=== PATIENT | female | born 1980 | race Caucasian/White ===

== ENCOUNTER 2020-08-19 18:43 | Observation (INO) | payer MEDICAID, OTHER ==
[~2020-08-19 18:43] MED LIST: Iopamidol-370 76% 500 ML 1 ML ONE
[2020-08-19 19:20] LABS: #Eosinphils 0.1 thou/uL (0.0-0.7); #Lymphocytes 2.4 thou/uL (1.20-3.40); #Monocytes 0.6 thou/uL (0.11-0.59); #Neutrophils 5.6 thou/uL (1.40-6.50); %Basophils 0.2 % (0.0-1.0); %Eosinophils 1.5 % (0.0-10.0); %Lymphocytes 27.2 % (21.0-51.0); %Monocytes 6.5 % (0.0-10.0); %Neutrophils 64.6 % (42.0-75.0); Mean Corpuscular HGB CONC 32.8 g/dL (32.0-36.0); Mean Corpuscular Hemoglobin 32.5 pg (27.0-31.0); Mean Corpuscular Volume 98.8 fL (78.0-98.0); Mean Platelet Volume 7.7 fL (7.4-10.4); Platelet Count 227 thou/uL (130-400); RBC Distribution Width 13.2 % (11.5-14.5); White Blood Cell (WBC) Count 8.6 thou/uL (4.8-10.8)
[2020-08-19 19:48] LABS: ALT (SGPT) 14 U/L (8-55); AST (SGOT) 29 U/L (5-34); Albumin 4.1 g/dL (3.5-5.0); Alkaline Phosphatase 65 U/L (40-110); Anion Gap 15 mmol/L (10-20); BUN (Urea Nitrogen) 8 mg/dL (7.0-18.7); Bilirubin, Total 0.7 mg/dL (0.2-1.2); Calc. Creatinine Clearance 0 mL/min (70-130); Calcium 9.4 mg/dL (7.8-10.44); Carbon Dioxide 25 mmol/L (22-29); Chloride 105 mmol/L (98-107); Globulin 3.3 g/dL (2.4-3.5); Glucose 104 mg/dL (70-105); Lipase 21 U/L (8-78); Potassium 4.8 mmol/L (3.5-5.1); Protein, Total 7.4 g/dL (6.0-8.3); Sodium 140 mmol/L (136-145)
[2020-08-19 22:57] LABS: Troponin I Less than 0.010 ng/mL (< 0.028)
[2020-08-20] MEDS ORDERED: Furosemide 20 MG/2 ML VIAL ONE (00:34)
[2020-08-20 02:11] LABS: SARS-CoV-2 NAA Rapid Test Not Detected (NotDetected)
[2020-08-20 02:51] LABS: Troponin I Less than 0.010 ng/mL (< 0.028)
[2020-08-20 07:36] LABS: Troponin I Less than 0.010 ng/mL (< 0.028)
[2020-08-20 10:40] LABS: Troponin I Less than 0.010 ng/mL (< 0.028)
[2020-08-20] MEDS ORDERED: HYDROcodone/Acetaminophen 5/325 mg Tablet PO PRN (12:46)
[2020-08-20 13:07] VITALS: BMI 29.5
[2020-08-20 14:04] LABS: Troponin I Less than 0.010 ng/mL (< 0.028)
[2020-08-20] MEDS ORDERED: HYDROcodone/Acetaminophen 10/325 mg Tablet PO PRN (17:04)
[2020-08-20] MEDS ORDERED: Metoprolol Tartrate 25 MG TAB PO SCH (21:00)
[2020-08-20] MEDS ORDERED: Diazepam 5 MG TAB PO SCH ×2 (21:00)
[2020-08-20 21:03] VITALS: BP 115/60; TEMP 98.7
[2020-08-21] MEDS ORDERED: Enoxaparin Sodium 40 MG/0.4 ML SYRINGE SC SCH (09:00)
[2020-08-21] MEDS ORDERED: Aspirin Chewable 81 MG TAB PO SCH (09:00)
== END 2020-08-20 21:13 | disposition left against medical advice (07) ==
LOC: ERS 18:43 → ERHOLD 08-20 02:12 → 2SW 08-20 02:24
PROVIDERS: ADMIT Student in an Organized Health Care Education/Training Program; ATTEND Hospitalist
DX: R07.89 Other chest pain (principal); F41.9 Anxiety disorder, unspecified; F17.210 Nicotine dependence, cigarettes, uncomplicated; G89.4 Chronic pain syndrome; I42.8 Other cardiomyopathies; K08.89 Other specified disorders of teeth and supporting structures; Z20.822 Contact with and (suspected) exposure to COVID-19; Z53.29 Procedure and treatment not carried out because of patient's decision for other reasons; Z79.899 Other long term (current) drug therapy
CPT/HCPCS: 36415; 71045; 71275; 80053; 83690; 83880; 84484; 85025; 93005; 96374; G0378; J1940; J7620; Q9967; U0002; U0005

== ENCOUNTER 2022-06-20 17:46 | Emergency (ER) | payer OTHER ==
[2022-06-20 19:31] LABS: #Basophils 0.1 thou/uL (0.0-0.2); #Eosinphils 0.3 thou/uL (0.0-0.7); #Monocytes 0.7 thou/uL (0.11-0.59); #Neutrophils 6.7 thou/uL (1.40-6.50); %Basophils 0.8 % (0.0-1.0); %Eosinophils 3.5 % (0.0-10.0); %Lymphocytes 20.5 % (21.0-51.0); %Monocytes 7.1 % (0.0-10.0); %Neutrophils 68.1 % (42.0-75.0); Hemoglobin 13.8 g/dL (12.0-16.0); Mean Corpuscular HGB CONC 36.8 g/dL (32.0-36.0); Mean Corpuscular Hemoglobin 34.2 pg (27.0-31.0); Mean Platelet Volume 7.9 fL (7.4-10.4); Platelet Count 221 10x3/uL (130-400); RBC Distribution Width 13.3 % (11.5-14.5); Red Blood Cell (RBC) Count 4.02 mill/uL (4.20-5.40); White Blood Cell (WBC) Count 9.9 10x3/uL (4.8-10.8)
[2022-06-20 19:45] LABS: ALT (SGPT) 12 U/L (8-55); AST (SGOT) 14 U/L (5-34); Albumin 3.9 g/dL (3.5-5.0); Alkaline Phosphatase 71 U/L (40-110); Anion Gap 16 mmol/L (10-20); BUN (Urea Nitrogen) 21 mg/dL (7.0-18.7); Bilirubin, Total 0.3 mg/dL (0.2-1.2); Calc. Creatinine Clearance 0 mL/min (70-130); Calcium 9.4 mg/dL (7.8-10.44); Carbon Dioxide 25 mmol/L (22-29); Chloride 102 mmol/L (98-107); Estimated GFR 86; Globulin 2.6 g/dL (2.4-3.5); Glucose 130 mg/dL (70-105); Potassium 3.8 mmol/L (3.5-5.1); Protein, Total 6.5 g/dL (6.0-8.3); Sodium 139 mmol/L (136-145)
== END 2022-06-20 20:49 | disposition home or self-care (01) ==
LOC: ERS 17:46
DX: R07.89 Other chest pain (principal); I11.0 Hypertensive heart disease with heart failure; I50.9 Heart failure, unspecified; J44.9 Chronic obstructive pulmonary disease, unspecified; F17.210 Nicotine dependence, cigarettes, uncomplicated; Z79.899 Other long term (current) drug therapy
CPT/HCPCS: 36415; 71045; 80053; 83880; 84484; 85025; 93005

== ENCOUNTER 2023-02-03 21:48 | Inpatient (IN) | payer OTHER, SELFPAY ==
[2023-02-03] MEDS ORDERED: Ipratropium/Albuterol 3 ML NEB ONE (21:57)
[2023-02-03 22:50] LABS: #Monocytes 0.3 thou/uL (0.11-0.59); #Neutrophils 7.9 thou/uL (1.40-6.50); %Basophils 0.2 % (0.0-1.0); %Lymphocytes 11.2 % (21.0-51.0); %Monocytes 3.5 % (0.0-10.0); %Neutrophils 84.4 % (42.0-75.0); Hematocrit 37.4 % (36.0-47.0); Hemoglobin 12.2 g/dL (12.0-16.0); Mean Corpuscular HGB CONC 32.6 g/dL (32.0-36.0); Mean Corpuscular Hemoglobin 31.6 pg (27.0-31.0); Mean Corpuscular Volume 96.9 fl (78.0-98.0); Mean Platelet Volume 10.3 fL (7.4-10.4); Platelet Count 245 10x3/uL (130-400); RBC Distribution Width 15.2 % (11.5-14.5); Red Blood Cell (RBC) Count 3.86 mill/uL (4.20-5.40); White Blood Cell (WBC) Count 9.4 10x3/uL (4.8-10.8)
[2023-02-03 22:56] LABS: Actual Bicarbonate (HCO3a) 25.2 mEq/L (22-28); Analyzer IN Cardio ER; Base Excess (BEa) -0.3 mEq/L (-2.0 to +3.0); CO2 Tension 44.1 mmHg (35.0-45.0); Calcium, Ionized (arterial) 1.19 mmol/L (1.12-1.30); Carboxyhemoglobin (COHb) 2.1 gm% (0.0-3.0); Hematocrit-ABG 38 % (36.0-47.0); Hemoglobin (Hb) 12.8 g/dL (12.0-16.0); O2 Tension (PaO2), arterial 81.5 mmHg (80.0-100.0); Potassium - ABG Lab 4.35 mmol/L (3.70-5.30); pH, Arterial 7.374 (7.35-7.45)
[2023-02-03 23:03] LABS: Puncture Site LB
[2023-02-03 23:04] LABS: ALV-art Gradient 148.575 mmHg (0-20)
[2023-02-03 23:17] LABS: ALT (SGPT) 18 U/L (8-55); AST (SGOT) 18 U/L (5-34); Albumin 3.9 g/dL (3.5-5.0); Alkaline Phosphatase 91 U/L (40-110); Anion Gap 17 mmol/L (10-20); BUN (Urea Nitrogen) 11 mg/dL (7.0-18.7); Bilirubin, Total 0.7 mg/dL (0.2-1.2); Calc. Creatinine Clearance 0 mL/min (70-130); Calcium 9.6 mg/dL (7.8-10.44); Carbon Dioxide 26 mmol/L (22-29); Chloride 101 mmol/L (98-107); Estimated GFR 87; Globulin 3.2 g/dL (2.4-3.5); Glucose 208 mg/dL (70-105); Magnesium 1.8 mg/dL (1.6-2.6); Potassium 4.5 mmol/L (3.5-5.1); Protein, Total 7.1 g/dL (6.0-8.3); Sodium 139 mmol/L (136-145)
[2023-02-03 23:28] LABS: SARS-CoV-2 NAA Rapid Test Not Detected (NotDetected)
[2023-02-03 23:43] LABS: Troponin I Less than 0.010 ng/mL (< 0.028)
[2023-02-04] MEDS ORDERED: Ipratropium/Albuterol 3 ML NEB ONE (00:14)
[2023-02-04] MEDS ORDERED: Ondansetron ODT 4 MG TAB PO PRN (00:41)
[2023-02-04] MEDS ORDERED: Calcium Carbonate 500 MG ChewTAB PO PRN (00:41)
[2023-02-04] MEDS ORDERED: Acetaminophen 325 MG TAB PO PRN (00:41)
[2023-02-04] MEDS ORDERED: Electrolyte Replacement Protocol 1 EACH FS PRN (00:43)
[2023-02-04] MEDS ORDERED: Magnesium 2 GM/50 ML(in water) 2 GM in Premix 1 BAG IVPB SCH (01:00)
[2023-02-04] MEDS: Ipratropium/Albuterol 3 ML NEB NEB SCH ×3 (01:40→12:40)
[2023-02-04] MEDS ORDERED: Dextrose 5% in Water 1,000 ML IV PRN (04:10)
[2023-02-04] MEDS ORDERED: Glucagon 1 MG/ML KIT IM PRN (04:10)
[2023-02-04] MEDS ORDERED: HumaLOG 300 UNITS/3 ML VIAL SC PRN (04:10)
[2023-02-04] MEDS ORDERED: Dextrose 50% Abboject 50 ML SYRINGE SLOW IVP PRN (04:10)
[2023-02-04] MEDS ORDERED: Albumin 25% 100 ML ONE (04:14)
[2023-02-04] MEDS ORDERED: Furosemide 20 MG in Sodium Chloride 0.9% 90 ML IVPB SCH (04:30)
[2023-02-04] MEDS ORDERED: Albumin 25% 25 GM/100 ML BOT IVPB SCH (04:45)
[2023-02-04] MEDS ORDERED: Furosemide 20 MG/2 ML VIAL SLOW IVP SCH (04:45)
[2023-02-04] MEDS: HumaLOG 300 UNITS/3 ML VIAL SC PRN ×2 (04:46→11:45)
[2023-02-04 05:09] LABS: #Monocytes 0.1 thou/uL (0.11-0.59); #Neutrophils 8.7 thou/uL (1.40-6.50); %Basophils 0.1 % (0.0-1.0); %Lymphocytes 7.1 % (21.0-51.0); %Monocytes 1.4 % (0.0-10.0); %Neutrophils 90.9 % (42.0-75.0); Hematocrit 36.4 % (36.0-47.0); Hemoglobin 11.7 g/dL (12.0-16.0); Mean Corpuscular HGB CONC 32.1 g/dL (32.0-36.0); Mean Corpuscular Hemoglobin 31.5 pg (27.0-31.0); Mean Corpuscular Volume 98.1 fl (78.0-98.0); Mean Platelet Volume 10.2 fL (7.4-10.4); Platelet Count 242 10x3/uL (130-400); RBC Distribution Width 15.3 % (11.5-14.5); Red Blood Cell (RBC) Count 3.71 mill/uL (4.20-5.40); White Blood Cell (WBC) Count 9.6 10x3/uL (4.8-10.8)
[2023-02-04 05:19] LABS: Hemoglobin A1c 6.3 % (4.0-6.0)
[2023-02-04 05:37] LABS: Anion Gap 16 mmol/L (10-20); BUN (Urea Nitrogen) 13 mg/dL (7.0-18.7); Calc. Creatinine Clearance 143 mL/min (70-130); Calcium 9.5 mg/dL (7.8-10.44); Carbon Dioxide 25 mmol/L (22-29); Chloride 102 mmol/L (98-107); Estimated GFR 89; Glucose 313 mg/dL (70-105); Potassium 4.6 mmol/L (3.5-5.1); Sodium 138 mmol/L (136-145)
[2023-02-04] MEDS ORDERED: Carvedilol 3.125 MG TAB PO SCH ×2 (08:00)
[2023-02-04] MEDS ORDERED: methylPREDNISolone Sod Succ 40 MG VIAL IVP SCH (09:00)
[2023-02-04] MEDS ORDERED: Lisinopril 2.5 MG TAB PO SCH (09:00)
[2023-02-04] MEDS ORDERED: Famotidine 20 MG TAB PO SCH (09:00)
[2023-02-04 09:34] VITALS: BMI 42.2
[2023-02-04] MEDS: Furosemide 40 MG/4 ML VIAL SLOW IVP SCH ×2 (09:46→10:50)
[2023-02-04] MEDS ORDERED: Empagliflozin 10 MG TAB PO SCH (10:15)
[2023-02-04 12:23] VITALS: TEMP 98.2
[2023-02-04] MEDS ORDERED: Ipratropium/Albuterol 3 ML NEB NEB PRN (12:41)
[2023-02-04 13:07] VITALS: BP 120/80
[2023-02-05] MEDS ORDERED: predniSONE 20 MG TAB PO SCH (08:00)
[2023-02-05] MEDS ORDERED: Empagliflozin 10 MG TAB PO SCH (09:00)
== END 2023-02-04 13:53 | disposition left against medical advice (07) | DRG 291 ==
LOC: ERS 21:48 → CCU 23:59 → UNDOADMIN 02-04 → CCU 02-04 → UNDODISIN 02-04 13:53
PROVIDERS: ADMIT Student in an Organized Health Care Education/Training Program; ATTEND Internal Medicine
PROC: 5A09357 Assistance with Respiratory Ventilation, Less than 24 Consecutive Hours, Continuous Positive Airway Pressure (ICD-10-PCS; principal; 2023-02-04)
PROC: 30233J1 Transfusion of Nonautologous Serum Albumin into Peripheral Vein, Percutaneous Approach (ICD-10-PCS; 2023-02-04)
DX: I11.0 Hypertensive heart disease with heart failure (principal); I50.33 Acute on chronic diastolic (congestive) heart failure; J96.21 Acute and chronic respiratory failure with hypoxia; J44.1 Chronic obstructive pulmonary disease with (acute) exacerbation; I25.10 Atherosclerotic heart disease of native coronary artery without angina pectoris; F17.210 Nicotine dependence, cigarettes, uncomplicated; F12.10 Cannabis abuse, uncomplicated; I34.0 Nonrheumatic mitral (valve) insufficiency; R73.9 Hyperglycemia, unspecified; F32.A Depression, unspecified; F41.9 Anxiety disorder, unspecified; Z11.52 Encounter for screening for COVID-19; Z88.7 Allergy status to serum and vaccine; Z79.51 Long term (current) use of inhaled steroids; Z79.899 Other long term (current) drug therapy; I25.2 Old myocardial infarction; Z90.49 Acquired absence of other specified parts of digestive tract; Z98.890 Other specified postprocedural states
CPT/HCPCS: 36415; 36416; 71045; 80048; 80053; 82805; 83036; 83735; 83880; 84484; 85025; 85379; 93005; 93798; 94640; 94660; J1650; J1815; J1940; J2920; J3475; J7620; P9047

== ENCOUNTER 2023-03-06 14:25 | Inpatient (IN) | payer OTHER, SELFPAY ==
[2023-03-06] MEDS ORDERED: Ketamine In 0.9 % NaCl 50 MG/5 ML SYRINGE ONE ×2 (14:32→17:15)
[2023-03-06] MEDS ORDERED: Rocuronium Bromide 10 MG/ML (10ML VIAL) ONE (14:32)
[2023-03-06] MEDS ORDERED: Nitroglycerin 50 MG/250 ML BOT 250 ML ONE (14:38)
[2023-03-06 14:41] LABS: #Basophils 0.1 thou/uL (0.0-0.2); #Monocytes 0.6 thou/uL (0.11-0.59); #Neutrophils 19.2 thou/uL (1.40-6.50); %Basophils 0.4 % (0.0-1.0); %Eosinophils 0.1 % (0.0-10.0); %Lymphocytes 7.2 % (21.0-51.0); %Monocytes 2.9 % (0.0-10.0); %Neutrophils 87.5 % (42.0-75.0); Hematocrit 44.5 % (36.0-47.0); Hemoglobin 14.6 g/dL (12.0-16.0); Mean Corpuscular HGB CONC 32.8 g/dL (32.0-36.0); Mean Corpuscular Hemoglobin 31.8 pg (27.0-31.0); Mean Corpuscular Volume 96.9 fl (78.0-98.0); Mean Platelet Volume 10.8 fL (7.4-10.4); Platelet Count 328 10x3/uL (130-400); RBC Distribution Width 15.2 % (11.5-14.5); Red Blood Cell (RBC) Count 4.59 mill/uL (4.20-5.40)
[2023-03-06 14:46] LABS: Actual Bicarbonate (HCO3a) 29.3 mEq/L (22-28); Analyzer IN Cardio ER; Base Excess (BEa) -2.4 mEq/L (-2.0 to +3.0); Calcium, Ionized (arterial) 1.24 mmol/L (1.12-1.30); Carboxyhemoglobin (COHb) 3.9 gm% (0.0-3.0); Hematocrit-ABG 44 % (36.0-47.0); Hemoglobin (Hb) 14.9 g/dL (12.0-16.0); O2 Tension (PaO2), arterial 65.1 mmHg (80.0-100.0); Potassium - ABG Lab 3.92 mmol/L (3.70-5.30)
[2023-03-06 14:49] LABS: CO2 Tension 87.7 mmHg (35.0-45.0); Puncture Site RRA; pH, Arterial 7.141 (7.35-7.45)
[2023-03-06 14:50] LABS: ALV-art Gradient 538.275 mmHg (0-20)
[2023-03-06] MEDS ORDERED: Fentanyl CADD 100 ML IV SCH (15:00)
[2023-03-06 15:16] LABS: Troponin I Less than 0.010 ng/mL (< 0.028)
[2023-03-06] MEDS ORDERED: Ventilator Sedation Protocol 1 EACH FS SCH (16:00)
[2023-03-06] MEDS ORDERED: Electrolyte Replacement Protocol 1 EACH FS SCH (16:00)
[2023-03-06] MEDS ORDERED: Ketorolac Tromethamine 30 MG (1 mL) VIAL ONE (16:32)
[2023-03-06] MEDS ORDERED: Furosemide 40 MG (4 mL) VIAL ONE (16:43)
[2023-03-06 16:52] LABS: Albumin 4.2 g/dL (3.5-5.0)
[2023-03-06 16:53] LABS: Chloride 101 mmol/L (98-107); Potassium 4.6 mmol/L (3.5-5.1); Sodium 135 mmol/L (136-145)
[2023-03-06] MEDS ORDERED: Midazolam HCl 2 mg/2 ml Vial ONE (16:53)
[2023-03-06 16:54] LABS: Calcium 9.4 mg/dL (7.8-10.44); Glucose 294 mg/dL (70-105)
[2023-03-06 16:55] LABS: Globulin 3.3 g/dL (2.4-3.5); Protein, Total 7.5 g/dL (6.0-8.3)
[2023-03-06 16:56] LABS: Anion Gap 16 mmol/L (10-20); Bilirubin, Total 0.7 mg/dL (0.2-1.2); Carbon Dioxide 23 mmol/L (22-29)
[2023-03-06 16:57] LABS: Alkaline Phosphatase 124 U/L (40-110)
[2023-03-06 16:58] LABS: Calc. Creatinine Clearance 0 mL/min (70-130); Estimated GFR 79
[2023-03-06 16:59] LABS: BUN (Urea Nitrogen) 11 mg/dL (7.0-18.7)
[2023-03-06 17:00] LABS: ALT (SGPT) 124 U/L (8-55); AST (SGOT) 147 U/L (5-34); Magnesium 1.8 mg/dL (1.6-2.6)
[2023-03-06] MEDS ORDERED: Propofol 1,000 MG/100 ML VIAL IV ONE ×2 (17:12→17:18)
[2023-03-06] MEDS ORDERED: Glucagon 1 MG/ML KIT IM PRN (17:20)
[2023-03-06] MEDS ORDERED: Dextrose 50% Abboject 50 ML SYRINGE SLOW IVP PRN (17:20)
[2023-03-06] MEDS ORDERED: Dextrose 5% in Water 1,000 ML IV PRN (17:20)
[2023-03-06 17:26] LABS: SARS-CoV-2 NAA Rapid Test Not Detected (NotDetected)
[2023-03-06] MEDS ORDERED: Ondansetron ODT 4 MG TAB PO PRN (17:28)
[2023-03-06] MEDS ORDERED: Acetaminophen 650 MG Suppository PR PRN (17:28)
[2023-03-06] MEDS ORDERED: Propofol BOLUS 1,000 MG/100 ML VIAL IV PRN (17:30)
[2023-03-06] MEDS ORDERED: DISCONTINUE PREVIOUS NARCOTIC PAIN MEDICATIONS AND BENZODIAZEPINES FS SCH (17:30)
[2023-03-06] MEDS ORDERED: Fentanyl BOLUS 250 ML IVPB PRN (17:30)
[2023-03-06] MEDS ORDERED: Morphine 2 MG/ML VIAL SLOW IVP PRN (17:30)
[2023-03-06 18:13] LABS: Actual Bicarbonate (HCO3a) 28.3 mEq/L (22-28); Base Excess (BEa) 2.1 mEq/L (-2.0 to +3.0); Calcium, Ionized (arterial) 1.16 mmol/L (1.12-1.30); Carboxyhemoglobin (COHb) 2.1 gm% (0.0-3.0); Hematocrit-ABG 40 % (36.0-47.0); Hemoglobin (Hb) 13.6 g/dL (12.0-16.0); O2 Tension (PaO2), arterial 78.5 mmHg (80.0-100.0); Potassium - ABG Lab 4.41 mmol/L (3.70-5.30)
[2023-03-06 18:20] LABS: Puncture Site LRA
[2023-03-06] MEDS: Ipratropium/Albuterol 3 ML NEB NEB SCH ×2 (19:17→23:03)
[2023-03-06 19:31] LABS: Hemoglobin A1c 6.8 % (4.0-6.0)
[2023-03-06 19:46] LABS: Lactic Acid 3.6 mmol/L (0.5-2.2)
[2023-03-06] MEDS ORDERED: Magnesium 2 GM/50 ML(in water) 2 GM in Premix 1 BAG IVPB SCH (21:00)
[2023-03-06] MEDS: Furosemide 40 MG (4 mL) VIAL SLOW IVP SCH (21:32)
[2023-03-06] MEDS: Propofol 1,000 MG/100 ML VIAL IV PRN (21:41)
[2023-03-06] MEDS: Insulin Regular 300 UNITS/3 ML VIAL SC PRN (23:27)
[2023-03-07] MEDS: Ipratropium/Albuterol 3 ML NEB NEB SCH ×6 (03:04→21:59)
[2023-03-07] MEDS: Lorazepam 2 MG/ML VIAL SLOW IVP PRN ×6 (03:05→20:55)
[2023-03-07 04:13] LABS: #Basophils 0.1 thou/uL (0.0-0.2); #Neutrophils 11.1 thou/uL (1.40-6.50); %Basophils 0.3 % (0.0-1.0); %Eosinophils 0.1 % (0.0-10.0); %Lymphocytes 16.5 % (21.0-51.0); %Monocytes 6.5 % (0.0-10.0); %Neutrophils 76.1 % (42.0-75.0); Hematocrit 39.2 % (36.0-47.0); Hemoglobin 12.6 g/dL (12.0-16.0); Mean Corpuscular HGB CONC 32.1 g/dL (32.0-36.0); Mean Corpuscular Volume 96.3 fl (78.0-98.0); Mean Platelet Volume 10.6 fL (7.4-10.4); Platelet Count 234 10x3/uL (130-400); Red Blood Cell (RBC) Count 4.07 mill/uL (4.20-5.40); White Blood Cell (WBC) Count 14.6 10x3/uL (4.8-10.8)
[2023-03-07 04:40] LABS: Anion Gap 18 mmol/L (10-20); BUN (Urea Nitrogen) 18 mg/dL (7.0-18.7); Calc. Creatinine Clearance 114 mL/min (70-130); Calcium 8.9 mg/dL (7.8-10.44); Carbon Dioxide 23 mmol/L (22-29); Chloride 102 mmol/L (98-107); Estimated GFR 68; Glucose 170 mg/dL (70-105); Phosphorus 2.9 mg/dL (2.3-4.7); Potassium 4.1 mmol/L (3.5-5.1); Sodium 139 mmol/L (136-145)
[2023-03-07 04:53] LABS: Bacteria/HPF None Seen HPF (None Seen); Bilirubin Negative (Negative); Blood, Urine Trace (Negative); CAUTI Indications for Culture Urological Procedure; Clarity Clear (Clear); Glucose, Urine (Dipstick) Normal (Negative); Ketone, Urine Negative (Negative); Leukocyte 25 Leu/uL (Negative); Nitrite Negative (Negative); Protein, Urine (Dipstick) 10 mg/dL (Neg-Trace); RBC/HPF None Seen HPF (0-3); Specific Gravity, Urine 1.024 (1.002-1.036); Squamous Epithelial 0-3 HPF (0-3); Urobilinogen Normal mg/dL (Less than 2); pH, Urine 5.5 (5.0-9.0)
[2023-03-07 04:56] LABS: Urine Culture Reflex Yes Yes
[2023-03-07] MEDS: Insulin Regular 300 UNITS/3 ML VIAL SC PRN ×4 (06:11→21:51)
[2023-03-07] MEDS: Fentanyl CADD 100 ML IV SCH (07:09)
[2023-03-07] MEDS: Propofol 1,000 MG/100 ML VIAL IV PRN ×5 (07:09→20:55)
[2023-03-07 07:39] LABS: Actual Bicarbonate (HCO3a) 28.2 mEq/L (22-28); Base Excess (BEa) 6.1 mEq/L (-2.0 to +3.0); CO2 Tension 32.4 mmHg (35.0-45.0); Calcium, Ionized (arterial) 1.11 mmol/L (1.12-1.30); Carboxyhemoglobin (COHb) 1.2 gm% (0.0-3.0); Hematocrit-ABG 36 % (36.0-47.0); Hemoglobin (Hb) 12.2 g/dL (12.0-16.0); Potassium - ABG Lab 3.33 mmol/L (3.70-5.30); pH, Arterial 7.557 (7.35-7.45)
[2023-03-07 07:41] LABS: O2 Tension (PaO2), arterial 50.9 mmHg (80.0-100.0)
[2023-03-07 07:42] LABS: Puncture Site RRA
[2023-03-07] MEDS: Pantoprazole 40 MG VIAL IVP SCH (08:59)
[2023-03-07] MEDS: Furosemide 40 MG (4 mL) VIAL SLOW IVP SCH ×3 (08:59→20:23)
[2023-03-07] MEDS: Enoxaparin 40 MG (0.4 mL) SYRINGE SC SCH (08:59)
[2023-03-08] MEDS: Lorazepam 2 MG/ML VIAL SLOW IVP PRN
[2023-03-08] MEDS: Acetaminophen 325 MG TAB PO PRN ×3 (00:43→23:34)
[2023-03-08] MEDS: Propofol 1,000 MG/100 ML VIAL IV PRN ×5 (00:43→20:57)
[2023-03-08] MEDS: Ipratropium/Albuterol 3 ML NEB NEB SCH ×6 (02:33→22:38)
[2023-03-08] MEDS: Insulin Regular 300 UNITS/3 ML VIAL SC PRN ×2 (04:57→21:58)
[2023-03-08 06:54] LABS: #Eosinphils 0.1 thou/uL (0.0-0.7); #Monocytes 1.3 thou/uL (0.11-0.59); #Neutrophils 12.9 thou/uL (1.40-6.50); %Basophils 0.2 % (0.0-1.0); %Eosinophils 0.6 % (0.0-10.0); %Neutrophils 80.6 % (42.0-75.0); Hematocrit 35.3 % (36.0-47.0); Hemoglobin 11.1 g/dL (12.0-16.0); Mean Corpuscular HGB CONC 31.4 g/dL (32.0-36.0); Mean Corpuscular Hemoglobin 31.7 pg (27.0-31.0); Mean Corpuscular Volume 100.9 fl (78.0-98.0); Mean Platelet Volume 10.1 fL (7.4-10.4); Platelet Count 189 10x3/uL (130-400); RBC Distribution Width 15.7 % (11.5-14.5); White Blood Cell (WBC) Count 16.1 10x3/uL (4.8-10.8)
[2023-03-08] MEDS: Fentanyl CADD 100 ML IV SCH (07:12)
[2023-03-08 07:27] LABS: ALT (SGPT) 61 U/L (8-55); AST (SGOT) 43 U/L (5-34); Albumin 3.3 g/dL (3.5-5.0); Alkaline Phosphatase 92 U/L (40-110); Anion Gap 16 mmol/L (10-20); BUN (Urea Nitrogen) 16 mg/dL (7.0-18.7); Bilirubin, Direct 0.6 mg/dL (0.1-0.3); Bilirubin, Total 1.5 mg/dL (0.2-1.2); Calc. Creatinine Clearance 134 mL/min (70-130); Calcium 8.5 mg/dL (7.8-10.44); Carbon Dioxide 30 mmol/L (22-29); Chloride 98 mmol/L (98-107); Estimated GFR 84; Glucose 139 mg/dL (70-105); Magnesium 4.2 mg/dL (1.6-2.6); Potassium 2.9 mmol/L (3.5-5.1); Protein, Total 6.1 g/dL (6.0-8.3); Sodium 141 mmol/L (136-145)
[2023-03-08 07:39] LABS: Base Excess (BEa) 7.7 mEq/L (-2.0 to +3.0); CO2 Tension 49.4 mmHg (35.0-45.0); Carboxyhemoglobin (COHb) 0.9 gm% (0.0-3.0); Hematocrit-ABG 36 % (36.0-47.0); Hemoglobin (Hb) 12.2 g/dL (12.0-16.0); Potassium - ABG Lab 3.01 mmol/L (3.70-5.30); pH, Arterial 7.443 (7.35-7.45)
[2023-03-08 07:42] LABS: O2 Tension (PaO2), arterial 49.7 mmHg (80.0-100.0)
[2023-03-08 07:43] LABS: Puncture Site RRA
[2023-03-08] MEDS: Insulin Glargine 30 UNITS/0.3 ML VIAL SC SCH (08:42)
[2023-03-08] MEDS: Enoxaparin 40 MG (0.4 mL) SYRINGE SC SCH (08:42)
[2023-03-08] MEDS: Potassium Chloride 20 MEQ in Premix 1 BAG IVPB SCH ×2 (08:42→08:52)
[2023-03-08] MEDS: Pantoprazole 40 MG VIAL IVP SCH (08:42)
[2023-03-08] MEDS: cefTRIAXone\\ROCEPHIN 2 GM in Sodium Chloride 0.9% 100 ML IVPB SCH (08:52)
[2023-03-08] MEDS ORDERED: Electrolyte Replacement Protocol FS PRN (09:30)
[2023-03-08 15:50] LABS: Potassium 4.3 mmol/L (3.5-5.1)
[2023-03-09] MEDS: Propofol 1,000 MG/100 ML VIAL IV PRN ×6 (00:57→22:32)
[2023-03-09] MEDS: Fentanyl CADD 100 ML IV SCH ×2 (02:01→22:19)
[2023-03-09] MEDS: Ipratropium/Albuterol 3 ML NEB NEB SCH ×6 (02:34→22:44)
[2023-03-09 03:16] LABS: #Eosinphils 0.2 thou/uL (0.0-0.7); #Monocytes 0.8 thou/uL (0.11-0.59); #Neutrophils 11.4 thou/uL (1.40-6.50); %Basophils 0.2 % (0.0-1.0); %Eosinophils 1.1 % (0.0-10.0); %Monocytes 5.5 % (0.0-10.0); %Neutrophils 82.8 % (42.0-75.0); Hematocrit 33.4 % (36.0-47.0); Hemoglobin 10.6 g/dL (12.0-16.0); Mean Corpuscular HGB CONC 31.7 g/dL (32.0-36.0); Mean Corpuscular Hemoglobin 31.5 pg (27.0-31.0); Mean Corpuscular Volume 99.4 fl (78.0-98.0); Mean Platelet Volume 10.3 fL (7.4-10.4); Platelet Count 189 10x3/uL (130-400); RBC Distribution Width 15.8 % (11.5-14.5); Red Blood Cell (RBC) Count 3.36 mill/uL (4.20-5.40); White Blood Cell (WBC) Count 13.7 10x3/uL (4.8-10.8)
[2023-03-09 03:33] LABS: Anion Gap 13 mmol/L (10-20); BUN (Urea Nitrogen) 18 mg/dL (7.0-18.7); Calc. Creatinine Clearance 121 mL/min (70-130); Calcium 8.7 mg/dL (7.8-10.44); Carbon Dioxide 30 mmol/L (22-29); Chloride 100 mmol/L (98-107); Estimated GFR 75; Glucose 160 mg/dL (70-105); Magnesium 2.2 mg/dL (1.6-2.6); Phosphorus 3.9 mg/dL (2.3-4.7); Potassium 3.3 mmol/L (3.5-5.1); Sodium 140 mmol/L (136-145)
[2023-03-09] MEDS: Insulin Regular 300 UNITS/3 ML VIAL SC PRN ×4 (03:59→22:07)
[2023-03-09] MEDS: Potassium Chloride 20 MEQ in Premix 1 BAG IVPB SCH ×2 (03:59→05:39)
[2023-03-09] MEDS: Acetaminophen 325 MG TAB PO PRN ×2 (04:01→16:06)
[2023-03-09 07:18] LABS: Actual Bicarbonate (HCO3a) 32.9 mEq/L (22-28); CO2 Tension 52.9 mmHg (35.0-45.0); Calcium, Ionized (arterial) 1.11 mmol/L (1.12-1.30); Hematocrit-ABG 34 % (36.0-47.0); Hemoglobin (Hb) 11.7 g/dL (12.0-16.0); O2 Tension (PaO2), arterial 61.3 mmHg (80.0-100.0); Potassium - ABG Lab 3.44 mmol/L (3.70-5.30); pH, Arterial 7.412 (7.35-7.45)
[2023-03-09 07:43] LABS: ALV-art Gradient 157.775 mmHg (0-20); Puncture Site RRA
[2023-03-09] MEDS: Enoxaparin 40 MG (0.4 mL) SYRINGE SC SCH (08:30)
[2023-03-09] MEDS: Pantoprazole 40 MG VIAL IVP SCH (08:30)
[2023-03-09] MEDS: cefTRIAXone\\ROCEPHIN 2 GM in Sodium Chloride 0.9% 100 ML IVPB SCH (08:30)
[2023-03-09] MEDS ORDERED: Potassium Chloride 20 MEQ TAB PER TUBE SCH (09:00)
[2023-03-09] MEDS ORDERED: Furosemide 20 MG (2 mL) VIAL IVP SCH (09:15)
[2023-03-09] MEDS: Insulin Glargine 30 UNITS/0.3 ML VIAL SC SCH (09:26)
[2023-03-09] MEDS: methylPREDNISolone Sod Succ 40 MG VIAL IVP SCH ×2 (13:24→21:56)
[2023-03-10] MEDS: Ipratropium/Albuterol 3 ML NEB NEB SCH ×6 (03:10→21:44)
[2023-03-10] MEDS: Propofol 1,000 MG/100 ML VIAL IV PRN ×5 (03:40→20:45)
[2023-03-10] MEDS: Insulin Regular 300 UNITS/3 ML VIAL SC PRN (04:14)
[2023-03-10 04:44] LABS: #Monocytes 0.5 thou/uL (0.11-0.59); #Neutrophils 13.4 thou/uL (1.40-6.50); %Basophils 0.1 % (0.0-1.0); %Lymphocytes 3.2 % (21.0-51.0); %Monocytes 3.7 % (0.0-10.0); %Neutrophils 92.5 % (42.0-75.0); Hemoglobin 11.2 g/dL (12.0-16.0); Mean Corpuscular HGB CONC 31.1 g/dL (32.0-36.0); Mean Corpuscular Hemoglobin 30.7 pg (27.0-31.0); Mean Corpuscular Volume 98.6 fl (78.0-98.0); Mean Platelet Volume 10.9 fL (7.4-10.4); Platelet Count 194 10x3/uL (130-400); RBC Distribution Width 14.8 % (11.5-14.5); Red Blood Cell (RBC) Count 3.65 mill/uL (4.20-5.40); White Blood Cell (WBC) Count 14.5 10x3/uL (4.8-10.8)
[2023-03-10 04:58] LABS: Anion Gap 14 mmol/L (10-20); BUN (Urea Nitrogen) 26 mg/dL (7.0-18.7); Calc. Creatinine Clearance 121 mL/min (70-130); Calcium 9.2 mg/dL (7.8-10.44); Carbon Dioxide 29 mmol/L (22-29); Chloride 101 mmol/L (98-107); Estimated GFR 74; Glucose 316 mg/dL (70-105); Phosphorus 3.3 mg/dL (2.3-4.7); Potassium 4.4 mmol/L (3.5-5.1); Sodium 140 mmol/L (136-145)
[2023-03-10] MEDS: methylPREDNISolone Sod Succ 40 MG VIAL IVP SCH ×3 (06:17→21:11)
[2023-03-10 08:13] LABS: Base Excess (BEa) 4.9 mEq/L (-2.0 to +3.0); CO2 Tension 46.5 mmHg (35.0-45.0); Calcium, Ionized (arterial) 1.18 mmol/L (1.12-1.30); Carboxyhemoglobin (COHb) 0.6 gm% (0.0-3.0); Hematocrit-ABG 34 % (36.0-47.0); Hemoglobin (Hb) 11.7 g/dL (12.0-16.0); Potassium - ABG Lab 4.49 mmol/L (3.70-5.30); pH, Arterial 7.428 (7.35-7.45)
[2023-03-10 08:14] LABS: O2 Tension (PaO2), arterial 56.1 mmHg (80.0-100.0); Puncture Site RRA
[2023-03-10] MEDS: cefTRIAXone\\ROCEPHIN 2 GM in Sodium Chloride 0.9% 100 ML IVPB SCH (08:14)
[2023-03-10 08:15] LABS: ALV-art Gradient 170.975 mmHg (0-20)
[2023-03-10] MEDS: Enoxaparin 40 MG (0.4 mL) SYRINGE SC SCH (08:17)
[2023-03-10] MEDS: Acetaminophen 325 MG TAB PO PRN ×3 (08:18→17:06)
[2023-03-10] MEDS: Insulin Glargine 30 UNITS/0.3 ML VIAL SC SCH ×2 (08:18→20:47)
[2023-03-10] MEDS: Pantoprazole 40 MG VIAL IVP SCH (08:18)
[2023-03-10] MEDS: HumaLOG 300 UNITS/3 ML VIAL SC PRN ×3 (08:22→21:22)
[2023-03-10] MEDS ORDERED: Furosemide 40 MG (4 mL) VIAL SLOW IVP SCH (11:15)
[2023-03-10] MEDS: Fentanyl CADD 100 ML IV SCH (18:06)
[2023-03-10] MEDS ORDERED: Insulin Glargine 30 UNITS/0.3 ML VIAL SC SCH (21:00)
[2023-03-11] MEDS: Propofol 1,000 MG/100 ML VIAL IV PRN ×5 (01:45→21:14)
[2023-03-11] MEDS: Ipratropium/Albuterol 3 ML NEB NEB SCH ×6 (02:16→22:09)
[2023-03-11] MEDS: Lorazepam 2 MG/ML VIAL SLOW IVP PRN ×3 (03:04→21:54)
[2023-03-11] MEDS ORDERED: GLYCOPYRROLATE/PF 0.2 MG/ML VIAL SLOW IVP SCH (04:00)
[2023-03-11] MEDS ORDERED: Furosemide 20 MG (2 mL) VIAL SLOW IVP SCH (04:00)
[2023-03-11] MEDS: HumaLOG 300 UNITS/3 ML VIAL SC PRN ×3 (04:05→16:10)
[2023-03-11 04:19] LABS: #Monocytes 0.6 thou/uL (0.11-0.59); #Neutrophils 12.2 thou/uL (1.40-6.50); %Basophils 0.1 % (0.0-1.0); %Lymphocytes 4.8 % (21.0-51.0); %Monocytes 4.6 % (0.0-10.0); %Neutrophils 89.6 % (42.0-75.0); Hematocrit 34.9 % (36.0-47.0); Hemoglobin 10.9 g/dL (12.0-16.0); Mean Corpuscular HGB CONC 31.2 g/dL (32.0-36.0); Mean Corpuscular Hemoglobin 30.7 pg (27.0-31.0); Mean Corpuscular Volume 98.3 fl (78.0-98.0); Mean Platelet Volume 10.4 fL (7.4-10.4); Platelet Count 217 10x3/uL (130-400); RBC Distribution Width 14.5 % (11.5-14.5); Red Blood Cell (RBC) Count 3.55 mill/uL (4.20-5.40); White Blood Cell (WBC) Count 13.7 10x3/uL (4.8-10.8)
[2023-03-11 04:42] LABS: Anion Gap 14 mmol/L (10-20); BUN (Urea Nitrogen) 32 mg/dL (7.0-18.7); Calc. Creatinine Clearance 134 mL/min (70-130); Calcium 9.3 mg/dL (7.8-10.44); Carbon Dioxide 32 mmol/L (22-29); Chloride 100 mmol/L (98-107); Estimated GFR 84; Glucose 275 mg/dL (70-105); Potassium 4.2 mmol/L (3.5-5.1); Sodium 142 mmol/L (136-145)
[2023-03-11 04:44] LABS: ALT (SGPT) 47 U/L (8-55); AST (SGOT) 23 U/L (5-34); Albumin 3.3 g/dL (3.5-5.0); Alkaline Phosphatase 114 U/L (40-110); Bilirubin, Direct 0.2 mg/dL (0.1-0.3); Bilirubin, Total 0.4 mg/dL (0.2-1.2); Protein, Total 6.7 g/dL (6.0-8.3)
[2023-03-11 04:45] LABS: Phosphorus 2.7 mg/dL (2.3-4.7)
[2023-03-11] MEDS: methylPREDNISolone Sod Succ 40 MG VIAL IVP SCH ×3 (05:12→21:03)
[2023-03-11 08:30] LABS: Actual Bicarbonate (HCO3a) 31.9 mEq/L (22-28); Base Excess (BEa) 7.3 mEq/L (-2.0 to +3.0); CO2 Tension 44.9 mmHg (35.0-45.0); Calcium, Ionized (arterial) 1.21 mmol/L (1.12-1.30); Carboxyhemoglobin (COHb) 0.7 gm% (0.0-3.0); Hematocrit-ABG 37 % (36.0-47.0); Hemoglobin (Hb) 12.5 g/dL (12.0-16.0); O2 Tension (PaO2), arterial 63.2 mmHg (80.0-100.0); Potassium - ABG Lab 4.12 mmol/L (3.70-5.30); pH, Arterial 7.469 (7.35-7.45)
[2023-03-11 08:32] LABS: ALV-art Gradient 308.475 mmHg (0-20); Puncture Site RRA
[2023-03-11] MEDS: Insulin Glargine 30 UNITS/0.3 ML VIAL SC SCH ×2 (08:43→20:55)
[2023-03-11] MEDS: Furosemide 40 MG (4 mL) VIAL SLOW IVP SCH (08:45)
[2023-03-11] MEDS: cefTRIAXone\\ROCEPHIN 2 GM in Sodium Chloride 0.9% 100 ML IVPB SCH (08:46)
[2023-03-11] MEDS: Enoxaparin 40 MG (0.4 mL) SYRINGE SC SCH (08:46)
[2023-03-11] MEDS: Pantoprazole 40 MG VIAL IVP SCH (08:47)
[2023-03-11] MEDS: Fentanyl CADD 100 ML IV SCH (13:21)
[2023-03-11] MEDS ORDERED: Lactulose 20 GM (30 mL) UDCUP PO SCH (16:45)
[2023-03-11] MEDS: Senokot S 8.6-50 MG TAB PO SCH (20:55)
[2023-03-11] MEDS: Metoclopramide HCl 10 MG (2 mL) VIAL IVP SCH (21:03)
[2023-03-12] MEDS: HumaLOG 300 UNITS/3 ML VIAL SC PRN ×4 (00:29→12:20)
[2023-03-12] MEDS: Ipratropium/Albuterol 3 ML NEB NEB SCH ×6 (02:25→22:18)
[2023-03-12] MEDS: Lorazepam 2 MG/ML VIAL SLOW IVP PRN (03:16)
[2023-03-12] MEDS: Propofol 1,000 MG/100 ML VIAL IV PRN ×2 (03:16→08:47)
[2023-03-12] MEDS: Fentanyl CADD 100 ML IV SCH (05:34)
[2023-03-12] MEDS: Metoclopramide HCl 10 MG (2 mL) VIAL IVP SCH ×3 (05:34→21:23)
[2023-03-12] MEDS: methylPREDNISolone Sod Succ 40 MG VIAL IVP SCH ×3 (05:34→21:23)
[2023-03-12 07:09] LABS: #Monocytes 0.6 thou/uL (0.11-0.59); #Neutrophils 7.8 thou/uL (1.40-6.50); %Basophils 0.2 % (0.0-1.0); %Eosinophils 0.1 % (0.0-10.0); %Lymphocytes 13.1 % (21.0-51.0); %Monocytes 5.9 % (0.0-10.0); %Neutrophils 79.5 % (42.0-75.0); Hematocrit 42.2 % (36.0-47.0); Hemoglobin 12.7 g/dL (12.0-16.0); Mean Corpuscular HGB CONC 30.1 g/dL (32.0-36.0); Mean Corpuscular Hemoglobin 30.8 pg (27.0-31.0); Mean Corpuscular Volume 102.2 fl (78.0-98.0); Mean Platelet Volume 10.2 fL (7.4-10.4); Platelet Count 228 10x3/uL (130-400); RBC Distribution Width 14.6 % (11.5-14.5); Red Blood Cell (RBC) Count 4.13 mill/uL (4.20-5.40); White Blood Cell (WBC) Count 9.9 10x3/uL (4.8-10.8)
[2023-03-12 08:06] LABS: Anion Gap 18 mmol/L (10-20); BUN (Urea Nitrogen) 31 mg/dL (7.0-18.7); Calc. Creatinine Clearance 134 mL/min (70-130); Calcium 9.6 mg/dL (7.8-10.44); Carbon Dioxide 27 mmol/L (22-29); Chloride 102 mmol/L (98-107); Estimated GFR 87; Glucose 185 mg/dL (70-105); Phosphorus 3.5 mg/dL (2.3-4.7); Potassium 4.2 mmol/L (3.5-5.1); Sodium 143 mmol/L (136-145)
[2023-03-12 08:12] LABS: Actual Bicarbonate (HCO3a) 31.6 mEq/L (22-28); Base Excess (BEa) 5.9 mEq/L (-2.0 to +3.0); CO2 Tension 50.8 mmHg (35.0-45.0); Calcium, Ionized (arterial) 1.18 mmol/L (1.12-1.30); Carboxyhemoglobin (COHb) 0.5 gm% (0.0-3.0); Hematocrit-ABG 35 % (36.0-47.0); Hemoglobin (Hb) 11.8 g/dL (12.0-16.0); O2 Tension (PaO2), arterial 62.4 mmHg (80.0-100.0); Potassium - ABG Lab 3.83 mmol/L (3.70-5.30); pH, Arterial 7.411 (7.35-7.45)
[2023-03-12] MEDS: Furosemide 40 MG (4 mL) VIAL SLOW IVP SCH (08:50)
[2023-03-12] MEDS: Pantoprazole 40 MG VIAL IVP SCH (08:50)
[2023-03-12] MEDS: Enoxaparin 40 MG (0.4 mL) SYRINGE SC SCH (08:50)
[2023-03-12] MEDS: cefTRIAXone\\ROCEPHIN 2 GM in Sodium Chloride 0.9% 100 ML IVPB SCH (08:50)
[2023-03-12] MEDS: Insulin Glargine 30 UNITS/0.3 ML VIAL SC SCH ×2 (08:51→20:24)
[2023-03-12] MEDS: Lactulose 20 GM (30 mL) UDCUP PO SCH ×2 (08:51→09:14)
[2023-03-12] MEDS: Senokot S 8.6-50 MG TAB PO SCH ×2 (08:56→20:24)
[2023-03-12] MEDS ORDERED: DC Sedation Protocol FS SCH (10:19)
[2023-03-12] MEDS ORDERED: Dexmedetomidine In 0.9 % NaCl 100 ML IVPB SCH (10:30)
[2023-03-12] MEDS: Dexmedetomidine 400 MCG, Admixture Fee 1 EACH in Sodium Chloride 0.9% 96 ML IVPB SCH ×2 (11:22→15:49)
[2023-03-12] MEDS: Ondansetron PF 4 MG/2 ML Vial IVP PRN (16:44)
[2023-03-13] MEDS: Dexmedetomidine 400 MCG, Admixture Fee 1 EACH in Sodium Chloride 0.9% 96 ML IVPB SCH
[2023-03-13] MEDS: Ipratropium/Albuterol 3 ML NEB NEB SCH ×6 (03:02→22:36)
[2023-03-13 05:30] LABS: #Monocytes 0.8 thou/uL (0.11-0.59); #Neutrophils 11.4 thou/uL (1.40-6.50); %Basophils 0.2 % (0.0-1.0); %Eosinophils 0.1 % (0.0-10.0); %Lymphocytes 11.8 % (21.0-51.0); %Monocytes 5.8 % (0.0-10.0); Hemoglobin 12.2 g/dL (12.0-16.0); Mean Corpuscular HGB CONC 32.1 g/dL (32.0-36.0); Mean Corpuscular Hemoglobin 30.7 pg (27.0-31.0); Mean Platelet Volume 9.8 fL (7.4-10.4); Platelet Count 249 10x3/uL (130-400); RBC Distribution Width 14.1 % (11.5-14.5); Red Blood Cell (RBC) Count 3.97 mill/uL (4.20-5.40)
[2023-03-13 05:46] LABS: Mean Corpuscular Volume 95.7 fl (78.0-98.0)
[2023-03-13] MEDS: methylPREDNISolone Sod Succ 40 MG VIAL IVP SCH ×2 (06:09→13:02)
[2023-03-13] MEDS: Metoclopramide HCl 10 MG (2 mL) VIAL IVP SCH ×2 (06:09→13:02)
[2023-03-13 06:33] LABS: Anion Gap 12 mmol/L (10-20); BUN (Urea Nitrogen) 28 mg/dL (7.0-18.7); Calc. Creatinine Clearance 148 mL/min (70-130); Calcium 9.4 mg/dL (7.8-10.44); Carbon Dioxide 31 mmol/L (22-29); Chloride 97 mmol/L (98-107); Estimated GFR 97; Glucose 149 mg/dL (70-105); Potassium 3.9 mmol/L (3.5-5.1); Sodium 136 mmol/L (136-145)
[2023-03-13 06:35] LABS: Phosphorus 3.1 mg/dL (2.3-4.7)
[2023-03-13] MEDS: cefTRIAXone\\ROCEPHIN 2 GM in Sodium Chloride 0.9% 100 ML IVPB SCH (07:23)
[2023-03-13] MEDS: Furosemide 40 MG (4 mL) VIAL SLOW IVP SCH (07:24)
[2023-03-13] MEDS: Pantoprazole 40 MG VIAL IVP SCH (07:24)
[2023-03-13] MEDS: Enoxaparin 40 MG (0.4 mL) SYRINGE SC SCH (07:25)
[2023-03-13] MEDS: Ondansetron PF 4 MG/2 ML Vial IVP PRN ×2 (07:25→13:00)
[2023-03-13] MEDS: Insulin Glargine 30 UNITS/0.3 ML VIAL SC SCH ×2 (07:35→20:25)
[2023-03-13] MEDS: Senokot S 8.6-50 MG TAB PO SCH ×2 (07:43→20:21)
[2023-03-13] MEDS ORDERED: Benzonatate 100 MG CAP PO SCH (09:15)
[2023-03-13] MEDS: HumaLOG 300 UNITS/3 ML VIAL SC PRN ×2 (12:07→16:11)
[2023-03-13] MEDS ORDERED: Scopolamine 1 mg/72 hour Patch TD SCH (13:30)
[2023-03-13] MEDS: Promethazine 25 MG TAB PO PRN ×2 (13:46→19:02)
[2023-03-13] MEDS: Benzonatate 100 MG CAP PO PRN (20:21)
[2023-03-14] MEDS: Promethazine 25 MG TAB PO PRN (00:35)
[2023-03-14] MEDS: Ipratropium/Albuterol 3 ML NEB NEB SCH ×4 (02:46→13:22)
[2023-03-14] MEDS: Benzonatate 100 MG CAP PO PRN (04:06)
[2023-03-14] MEDS: Ondansetron PF 4 MG/2 ML Vial IVP PRN (04:06)
[2023-03-14 05:45] LABS: #Eosinphils 0.1 thou/uL (0.0-0.7); #Monocytes 0.8 thou/uL (0.11-0.59); #Neutrophils 13.1 thou/uL (1.40-6.50); %Basophils 0.2 % (0.0-1.0); %Eosinophils 0.3 % (0.0-10.0); %Lymphocytes 10.2 % (21.0-51.0); %Monocytes 5.2 % (0.0-10.0); Hemoglobin 13.7 g/dL (12.0-16.0); Mean Corpuscular HGB CONC 32.6 g/dL (32.0-36.0); Mean Corpuscular Hemoglobin 31.1 pg (27.0-31.0); Mean Corpuscular Volume 95.2 fl (78.0-98.0); Mean Platelet Volume 10.2 fL (7.4-10.4); Platelet Count 291 10x3/uL (130-400); RBC Distribution Width 14.6 % (11.5-14.5); Red Blood Cell (RBC) Count 4.41 mill/uL (4.20-5.40); White Blood Cell (WBC) Count 15.8 10x3/uL (4.8-10.8)
[2023-03-14 06:13] LABS: Phosphorus 3.5 mg/dL (2.3-4.7)
[2023-03-14 06:15] LABS: Anion Gap 14 mmol/L (10-20); BUN (Urea Nitrogen) 18 mg/dL (7.0-18.7); Calc. Creatinine Clearance 137 mL/min (70-130); Calcium 9.4 mg/dL (7.8-10.44); Carbon Dioxide 32 mmol/L (22-29); Chloride 95 mmol/L (98-107); Estimated GFR 90; Glucose 124 mg/dL (70-105); Potassium 3.2 mmol/L (3.5-5.1); Sodium 138 mmol/L (136-145)
[2023-03-14] MEDS ORDERED: Potassium Chloride 20 MEQ TAB PO SCH ×2 (08:00→13:00)
[2023-03-14 08:13] VITALS: BMI 34.2
[2023-03-14] MEDS: Enoxaparin 40 MG (0.4 mL) SYRINGE SC SCH (08:18)
[2023-03-14] MEDS: cefTRIAXone\\ROCEPHIN 2 GM in Sodium Chloride 0.9% 100 ML IVPB SCH (08:18)
[2023-03-14] MEDS: Furosemide 40 MG (4 mL) VIAL SLOW IVP SCH (08:18)
[2023-03-14] MEDS: Pantoprazole 40 MG VIAL IVP SCH (08:19)
[2023-03-14] MEDS: Insulin Glargine 30 UNITS/0.3 ML VIAL SC SCH (08:19)
[2023-03-14] MEDS: Senokot S 8.6-50 MG TAB PO SCH (08:19)
[2023-03-14 10:20] VITALS: BP 107/68
[2023-03-14] MEDS ORDERED: Spironolactone 25 MG TAB PO SCH (10:45)
[2023-03-14 12:28] LABS: Potassium 3.5 mmol/L (3.5-5.1)
[2023-03-14 13:26] VITALS: TEMP 98.5
[2023-03-15] MEDS ORDERED: Spironolactone 25 MG TAB PO SCH (08:00)
== END 2023-03-14 15:05 | disposition home or self-care (01) | DRG 870 ==
LOC: ERS 14:25 → CCU 18:14
PROVIDERS: ADMIT Student in an Organized Health Care Education/Training Program; ATTEND Family Medicine
PROC: 0T9B70Z Drainage of Bladder with Drainage Device, Via Natural or Artificial Opening (ICD-10-PCS; principal; 2023-03-06)
PROC: 5A1955Z Respiratory Ventilation, Greater than 96 Consecutive Hours (ICD-10-PCS; 2023-03-06)
PROC: 0BH17EZ Insertion of Endotracheal Airway into Trachea, Via Natural or Artificial Opening (ICD-10-PCS; 2023-03-06)
PROC: 0DH67UZ Insertion of Feeding Device into Stomach, Via Natural or Artificial Opening (ICD-10-PCS; 2023-03-06)
PROC: 4A133R1 Monitoring of Arterial Saturation, Peripheral, Percutaneous Approach (ICD-10-PCS; 2023-03-07)
PROC: 3E03329 Introduction of Other Anti-infective into Peripheral Vein, Percutaneous Approach (ICD-10-PCS; 2023-03-08)
DX: A41.9 Sepsis, unspecified organism (principal); I50.33 Acute on chronic diastolic (congestive) heart failure; J96.21 Acute and chronic respiratory failure with hypoxia; J44.1 Chronic obstructive pulmonary disease with (acute) exacerbation; I11.0 Hypertensive heart disease with heart failure; I25.2 Old myocardial infarction; I25.10 Atherosclerotic heart disease of native coronary artery without angina pectoris; Z90.89 Acquired absence of other organs; Z98.890 Other specified postprocedural states; F17.210 Nicotine dependence, cigarettes, uncomplicated; F12.10 Cannabis abuse, uncomplicated; Z88.7 Allergy status to serum and vaccine; Z79.899 Other long term (current) drug therapy; F32.A Depression, unspecified; F41.9 Anxiety disorder, unspecified; Z90.49 Acquired absence of other specified parts of digestive tract; E83.42 Hypomagnesemia; I34.0 Nonrheumatic mitral (valve) insufficiency; E87.6 Hypokalemia; Z11.52 Encounter for screening for COVID-19
CPT/HCPCS: 31500; 36415; 36416; 36600; 51702; 71045; 80048; 80053; 80076; 81001; 82805; 83036; 83605; 83735; 83880; 84100; 84145; 84484; 85025; 87040; 87070; 87086; 87205; 93005; 94002; 94003; 94640; 94660; 96365; 96374; 96375; 99292; C9113; J0696; J1650; J1815; J1885; J1940; J2060; J2250; J2405; J2704; J2765; J2920; J3010; J3475; J3480; J3490; J7620; Q0169

== ENCOUNTER 2024-11-04 20:02 | Emergency (ER) | payer OTHER ==
[2024-11-05 00:13] LABS: #Basophils 0.05 10x3/uL (0.0-0.2); #Eosinophils 0.19 10x3/uL (0.0-0.7); #Monocytes 0.59 10x3/uL (0.11-0.59); #Neutrophils 6.92 10x3/uL (1.40-6.50); %Basophils 0.5 % (0.0-1.0); %Eosinophils 1.8 % (0.0-10.0); %Lymphocytes 25.4 % (21.0-51.0); %Monocytes 5.6 % (0.0-10.0); %Neutrophils 66.2 % (42.0-75.0); Hematocrit 48.2 % (36.0-47.0); Hemoglobin 15.7 g/dL (12.0-16.0); Mean Corpuscular Hemoglobin 31.0 pg (27.0-31.0); Mean Corpuscular Volume 95.3 fL (78.0-98.0); Platelet Count 233 10x3/uL (130-400); Red Blood Cell (RBC) Count 5.06 mill/uL (4.20-5.40); White Blood Cell (WBC) Count 10.46 10x3/uL (4.8-10.8)
[2024-11-05 00:27] LABS: INR-International Normal Ratio 1.1
[2024-11-05 00:28] LABS: PTT 36.2 sec (22.9-36.1)
[2024-11-05 00:44] LABS: Prothrombin Time 14.6 sec (12.0-14.7)
[2024-11-05 00:46] LABS: ALT (SGPT) 22 U/L (Less than 34); AST (SGOT) 35 U/L (11-34); Albumin 4.3 g/dL (3.1-4.5); Alkaline Phosphatase 107 U/L (40-110); Anion Gap 17 mmol/L (10-20); BUN (Urea Nitrogen) 8 mg/dL (7.0-18.7); Bilirubin, Total 0.7 mg/dL (0.3-1.2); Calc. Creatinine Clearance 0 mL/min (70-130); Calcium 10.2 mg/dL (7.8-10.44); Carbon Dioxide 22 mmol/L (22-29); Chloride 101 mmol/L (98-107); Globulin 3.6 g/dL (2.4-3.5); Glucose 150 mg/dL (70-105); Potassium 4.2 mmol/L (3.5-5.1); Sodium 136 mmol/L (136-145)
[2024-11-05] MEDS ORDERED: diphenhydrAMINE 50 MG/ML VIAL ONE (01:51)
[2024-11-05] MEDS ORDERED: Metoclopramide HCl 10 MG (2 mL) VIAL ONE (01:51)
[2024-11-05] MEDS ORDERED: Ketorolac Tromethamine 30 MG (1 mL) VIAL ONE (03:27)
[2024-11-05] MEDS ORDERED: Dexamethasone 10 MG/ML VIAL ONE (03:27)
== END 2024-11-05 04:55 | disposition home or self-care (01) ==
LOC: ERS 20:02
DX: R51.9 Headache, unspecified (principal); I11.0 Hypertensive heart disease with heart failure; I50.9 Heart failure, unspecified; J44.9 Chronic obstructive pulmonary disease, unspecified; I25.2 Old myocardial infarction; F17.210 Nicotine dependence, cigarettes, uncomplicated
CPT/HCPCS: 36415; 70450; 80053; 85025; 85610; 85730; 86850; 86900; 86901; 93005; 96365; 96375; J1100; J1200; J1885; J2765